=== PATIENT | male | born 1940 | race Caucasian/White ===

== ENCOUNTER 2018-12-22 13:43 | Outpatient (CLI) | payer MEDICARE, OTHER ==
--- NOTE | 2018-12-22 15:30 | MRI ---
MRI Upper Ext Jt Rt WO Con History: S 66.811a rupture of flexor tendon of right hand Comparison: Hand radiographs of August 29, 2018 Findings: Bones: No acute fracture. 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 Incompletely evaluated area of susceptibility within the middle finger distal phalanx and index finger distal phalanx. Moderate degenerative changes of the thumb carpometacarpal joint. Degenerative changes between the pr oximal and distal carpal row. Tendons: Extensor tendons are intact. There is a complete rupture of the flexor digitorum profundus s mall finger at the level of the transverse carpal ligament. There is approximately a 2 cm gap between the torn tendon fibers. The proximal stump is felt to be at the level of the index finger pro ximal metacarpal metaphysis. Muscles: Muscle signal and bulk is normal. Soft tissues: Pulleys are intact. Low-grade tenosynovial fluid flexor tendons small finger. Impression: Full-thickness rupture flexor digitorum profundus small finger at the level of the transv erse carpal ligament with a 2 cm gap.
== END 2018-12-22 13:44 | disposition home or self-care (01) ==
LOC: BICMRI 13:43
PROVIDERS: ATTEND Orthopaedic Surgery Hand Surgery
DX: S66.811A Strain of other specified muscles, fascia and tendons at wrist and hand level, right hand, initial encounter (principal)

== ENCOUNTER 2019-02-23 10:27 | Outpatient (CLI) | payer MEDICARE, OTHER ==
[2019-02-23 12:15] LABS: Bacteria/HPF None Seen HPF (None Seen); Bilirubin Negative (Negative); Blood, Urine Negative (Negative); Clarity Clear (Clear); Glucose, Urine (Dipstick) Normal (Negative); Leukocyte Negative Leu/uL (Negative); Nitrite Negative (Negative); Protein, Urine (Dipstick) Negative (Neg-Trace); RBC/HPF 0-3 HPF (0-3); Squamous Epithelial None Seen HPF (0-3); Urobilinogen Normal mg/dL (Less than 2); WBC/HPF None Seen HPF (0-3)
[2019-02-23 12:17] LABS: #Eosinphils 0.1 thou/uL (0.0-0.7); #Lymphocytes 1.3 thou/uL (1.20-3.40); #Monocytes 0.5 thou/uL (0.11-0.59); #Neutrophils 5.1 thou/uL (1.40-6.50); %Basophils 0.1 % (0.0-1.0); %Eosinophils 1.4 % (0.0-10.0); %Lymphocytes 18.2 % (21.0-51.0); %Monocytes 7.4 % (0.0-10.0); Hemoglobin 14.5 g/dL (14.0-18.0); Mean Corpuscular HGB CONC 32.8 g/dL (32.0-36.0); Mean Corpuscular Hemoglobin 29.2 pg (27.0-31.0); Mean Corpuscular Volume 89.2 fL (78.0-98.0); Mean Platelet Volume 7.9 fL (7.4-10.4); Platelet Count 227 thou/uL (130-400); RBC Distribution Width 12.6 % (11.5-14.5); Red Blood Cell (RBC) Count 4.96 mill/uL (4.70-6.10)
[2019-02-23 12:38] LABS: Anion Gap 14 mmol/L (10-20); BUN (Urea Nitrogen) 15 mg/dL (8.4-25.7); Calc. Creatinine Clearance 0 mL/min (70-130); Calcium 9.6 mg/dL (7.8-10.44); Carbon Dioxide 24 mmol/L (23-31); Chloride 108 mmol/L (98-107); Estimated GFR-MDRD 64; Glucose 97 mg/dL (83-110); Potassium 4.8 mmol/L (3.5-5.1); Sodium 141 mmol/L (136-145)
--- NOTE | 2019-02-23 16:56 | EKG ---
Test Reason : Blood Pressure : / mmHG Vent. Rate : 067 BPM Atrial Rate : 067 BPM P-R Int : 174 ms QRS Dur : 092 ms QT Int : 394 ms P-R-T Axes : 041 026 043 degrees QTc Int : 416 ms Normal sinus rhythm minimal st abnormality Abnormal ECG When compared with ECG of 23-FEB-2019 11:24, (Unconfirmed) No significant change was found Confirmed by DR. Alma HERNANDEZ ([id number]) on 02/23/2019 4:56:29 PM Referred By: ROSA Confirmed By:DR. Alma HERNANDEZ
== END 2019-02-23 10:28 | disposition home or self-care (01) ==
LOC: LABBT 10:27
PROVIDERS: ATTEND Orthopaedic Surgery Hand Surgery
DX: Z01.818 Encounter for other preprocedural examination (principal); M18.12 Unilateral primary osteoarthritis of first carpometacarpal joint, left hand
CPT/HCPCS: 36415; 80048; 81001; 85025; 86140; 93005; 93010

== ENCOUNTER 2019-03-07 05:44 | Day surgery (SDC) | payer MEDICARE, OTHER ==
[2019-02-23 10:49] VITALS: BMI 24.4
[2019-03-07] MEDS ORDERED: Bupivacaine PF 0.5% 30 ML VIAL ONE (06:34)
[2019-03-07] MEDS ORDERED: Betamet Acet/Betamet Na Ph 30 MG/5 ML VIAL ONE (06:34)
[2019-03-07] MEDS ORDERED: Bacitracin Zinc Ointment 30 gm TUBE ONE (06:34)
[2019-03-07] MEDS ORDERED: Fentanyl 100 MCG/2 ML VIAL ONE (07:06)
[2019-03-07] MEDS ORDERED: Phenylephrine HCL 10 MG/ML VIAL ONE (07:06)
[2019-03-07] MEDS ORDERED: PROPOFOL 200 MG/20 ML VIAL ONE (09:54)
[2019-03-07] MEDS ORDERED: PHENYLEPHRINE-NS 100 MCG/ML 10 ML SYRINGE ONE (09:54)
[2019-03-07] MEDS ORDERED: ePHEDrine/0.9% NaCl/PF SYRINGE 50 mg/10 ml ONE (09:54)
[2019-03-07] MEDS ORDERED: Ondansetron PF 4 MG/2 ML Vial ONE (09:54)
[2019-03-07] MEDS ORDERED: Dexamethasone 20 MG/5 ML VIAL ONE (09:54)
[2019-03-07] MEDS ORDERED: Lidocaine 1% PF 5 ML VIAL ONE (09:54)
[2019-03-07] MEDS ORDERED: Ketorolac Tromethamine 30 MG/ML VIAL ONE (10:12)
--- NOTE | 2019-03-07 14:33 | RAD ---
EXAM: 3 views of the left index finger HISTORY: Status post ORIF of index finger COMPARISON: 08/29/2018 FINDINGS: There is loss of bone surrounding the PIP joint of the index finger. This could be secondar y to bony removal and ongoing fusion versus arthroplasty. Surrounding soft tissue swelling is seen. IMPRESSION: Postsurgical changes of the PIP joint of the index finger.
--- NOTE | 2019-03-08 08:30 | OP ---
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 POSTOPERATIVE DIAGNOSES: 1. 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 2. Osteophytes in all planes on both sides of the joint, that was tremendously large. PROCEDURES PERFORMED: 1. C-arm supervision. 2. Left index finger proximal phalangeal arthroplasty using #2 Kathie Surrey implant for the proximal phalangeal joint. COMPLICATIONS: None. SPECIMEN SENT: None. C-ARM SUPERVISION: Yes. TOURNIQUET TIME: 71 minutes. ESTIMATED BLOOD LOSS: 25 mL. DESCRIPTION OF PROCEDURE: After successful general endotracheal anesthesia, the limb was prepped and draped. The patient had time-out done and appropriately identified the index finger. We then made a zigzag incision, carried through skin and subcutaneous tissue, released extensor mechanism longitudinally, exposure was not completely adequate, so we then made a Z incision with the longitudinal limb being almost 2 cm long. Here now, we could obtain excellent exposure, completely flexed the PIP joint to 110 degrees. We began by performing our proximal cut with a 5-mm sagittal saw in the frontal sagittal plane, removing all condylar tissue. We then used a danielle to bur out the space and flatten out the eburnated bone, which was nearly 100% in the joint distally. We freed up the dorsal and radial osteophytes as much as possible without completely stripping the collateral ligament on the volar plate. Once this was done, we then brought the starter awl into the field. We went proximal 1st and radiographs and the C-arm confirmed excellent position in frontal sagittal plane and it was placed deep enough. Then, we did the same thing in the distal and C-arm confirmed in the frontal sagittal plane line being central and removed it. We then began progressive sizing with a serrated broach and we were able to get to a 2. This was done through much trepidation and multiple indurations at the same depth. Once this was done, we placed 2 prosthesis inside the wound, and it showed no instability and we felt that this was excellent fit. We then found the collateral ligaments, placed a [id number] suture in them with a heavy Prolene for later passes through the condyles. We then drilled K-wire to the condyle, radial side, and then placed the ligament back in line with the new joint space and then closed it here while the previously mentioned collateral ligament repair was accomplished with the joint at 40 degrees of flexion and maximally radially deviated. We then brought the final prosthesis on the field after irrigating and clean the wound one last time to make sure there were no abnormalities, we then placed the final prosthesis in place, tied the collateral ligament incision withProlene through a condyle and tied over the condyle, checking radiographic alignment to make sure it was. The patient then had no evidence of anesthetic or operative complication. The tourniquet was released. Hemostasis obtained. We closed the extensor mechanism 1st with a running 4-0 Prolene and then using heavy generous 4-0 Prolene and reapproximated. Now, this was done just before we placed the final prosthesis, which was all size 2 and had excellent fit. The patient had no evidence of anesthetic or operative complication after closure of the wound in the usual fashion and repair with the running Prolene of the extensor mechanism. Job ID: [id number]
== END 2019-03-07 11:45 | disposition home or self-care (01) ==
LOC: SDC 05:44
PROVIDERS: ATTEND Orthopaedic Surgery Hand Surgery
PROC: 0RRX0JZ Replacement of Left Finger Phalangeal Joint with Synthetic Substitute, Open Approach (ICD-10-PCS; principal; 2019-03-07)
DX: M19.042 Primary osteoarthritis, left hand (principal); I10 Essential (primary) hypertension; Z79.82 Long term (current) use of aspirin; Z79.899 Other long term (current) drug therapy; Z88.0 Allergy status to penicillin; Z88.1 Allergy status to other antibiotic agents; Z88.2 Allergy status to sulfonamides
CPT/HCPCS: 26536; 73140; 76000; C1776; J0690; J0702; J1100; J1885; J2001; J2370; J2405; J2704; J3010; J3370; J3490; S0020

== ENCOUNTER 2020-01-26 07:45 | Outpatient (CLI) | payer MEDICARE, OTHER ==
--- NOTE | 2020-01-26 09:25 | ULT ---
ABDOMINAL ULTRASOUND: INDICATION: Elevated liver enzymes. Images of the gallbladder show areas of gallbladder wall thickening. No evidence of gallstone identi fied. Common bile duct is normal caliber. Visualized aorta and IVC unremarkable. Pancreas is mostly obscured. The liver shows increased echogenicity suggesting fatty infiltration. No focal liver mass. The spleen appears normal. Both kidneys are imaged and appear unremarkable. IMPRESSION: Focal areas of gallbladder wall thickening in the region of neck of the gallbladder. No evidence of gallstone. Negative Bolivar's sign is described. Significance is uncertain. Consider HIDA scan to a ssess gallbladder function. POS: AGW
== END 2020-01-26 07:46 | disposition home or self-care (01) ==
LOC: BICULT 07:45
PROVIDERS: ATTEND Family Medicine
DX: R74.8 Abnormal levels of other serum enzymes (principal); K82.8 Other specified diseases of gallbladder
CPT/HCPCS: 93975

== ENCOUNTER 2021-06-13 12:06 | Outpatient (CLI) | payer MEDICARE, OTHER | END 2021-06-13 12:07 | disposition home or self-care (01) | LOC: SCSRAD 12:06 | PROVIDERS: ATTEND Family Medicine | DX: M25.551 Pain in right hip (principal); Z98.1 Arthrodesis status | CPT/HCPCS: 72170 ==

== ENCOUNTER 2022-12-28 09:34 | Emergency (ER) | payer MEDICARE, OTHER ==
[2022-12-28 10:10] LABS: #Basophils 0.1 thou/uL (0.0-0.2); #Monocytes 1.6 thou/uL (0.11-0.59); #Neutrophils 15.1 thou/uL (1.40-6.50); %Basophils 0.5 % (0.0-1.0); %Eosinophils 0.2 % (0.0-10.0); %Lymphocytes 5.3 % (21.0-51.0); %Monocytes 9.1 % (0.0-10.0); %Neutrophils 84.6 % (42.0-75.0); Hematocrit 39.8 % (42.0-52.0); Hemoglobin 13.2 g/dL (14.0-18.0); Mean Corpuscular HGB CONC 33.2 g/dL (32.0-36.0); Mean Corpuscular Hemoglobin 28.7 pg (27.0-31.0); Mean Corpuscular Volume 86.5 fl (78.0-98.0); Mean Platelet Volume 10.5 fL (7.4-10.4); Platelet Count 211 10x3/uL (130-400); RBC Distribution Width 15.4 % (11.5-14.5); White Blood Cell (WBC) Count 17.8 10x3/uL (4.8-10.8)
[2022-12-28 10:45] LABS: ALT (SGPT) 32 U/L (8-55); AST (SGOT) 74 U/L (5-34); Albumin 4.8 g/dL (3.4-4.8); Alkaline Phosphatase 73 U/L (40-110); Anion Gap 13 mmol/L (10-20); BUN (Urea Nitrogen) 17 mg/dL (8.4-25.7); Bilirubin, Total 0.7 mg/dL (0.2-1.2); Calc. Creatinine Clearance 0 mL/min (70-130); Calcium 9.6 mg/dL (7.8-10.44); Carbon Dioxide 20 mmol/L (23-31); Chloride 106 mmol/L (98-107); Estimated GFR 52; Globulin 2.4 g/dL (2.4-3.5); Glucose 89 mg/dL (83-110); Lipase 14 U/L (8-78); Potassium 4.4 mmol/L (3.5-5.1); Protein, Total 7.2 g/dL (5.8-8.1); Sodium 135 mmol/L (136-145)
[2022-12-28 11:52] LABS: Troponin I Less than 0.010 ng/mL (< 0.028)
[2022-12-28] MEDS ORDERED: Hydrocodone-Acetamin 15 ML UDCUP ONE ×2 (12:05→12:11)
== END 2022-12-28 13:40 | disposition home or self-care (01) ==
LOC: ERS 09:34
DX: R05.8 Other specified cough (principal)
CPT/HCPCS: 36415; 71045; 80053; 83690; 83880; 84484; 85025; 93005

== ENCOUNTER 2022-12-30 10:25 | Inpatient (IN) | payer MEDICARE, OTHER ==
[2022-12-30 10:49] LABS: #Basophils 0.1 thou/uL (0.0-0.2); #Eosinphils 0.2 thou/uL (0.0-0.7); #Monocytes 0.7 thou/uL (0.11-0.59); %Basophils 0.5 % (0.0-1.0); %Eosinophils 1.2 % (0.0-10.0); %Lymphocytes 5.6 % (21.0-51.0); %Monocytes 5.4 % (0.0-10.0); %Neutrophils 86.9 % (42.0-75.0); Hematocrit 38.7 % (42.0-52.0); Hemoglobin 12.6 g/dL (14.0-18.0); Mean Corpuscular HGB CONC 32.6 g/dL (32.0-36.0); Mean Corpuscular Hemoglobin 28.8 pg (27.0-31.0); Mean Corpuscular Volume 88.6 fl (78.0-98.0); Mean Platelet Volume 10.4 fL (7.4-10.4); Platelet Count 190 10x3/uL (130-400); Red Blood Cell (RBC) Count 4.37 mill/uL (4.70-6.10); White Blood Cell (WBC) Count 13.8 10x3/uL (4.8-10.8)
[2022-12-30] MEDS ORDERED: Iopamidol-370 76% 500 ML MDV (1 ML CHARGE) ONE (11:11)
[2022-12-30 11:15] LABS: ALT (SGPT) 55 U/L (8-55); AST (SGOT) 166 U/L (5-34); Albumin 3.7 g/dL (3.4-4.8); Alkaline Phosphatase 75 U/L (40-110); Anion Gap 14 mmol/L (10-20); BUN (Urea Nitrogen) 22 mg/dL (8.4-25.7); Bilirubin, Total 1.3 mg/dL (0.2-1.2); Calc. Creatinine Clearance 0 mL/min (70-130); Calcium 8.6 mg/dL (7.8-10.44); Carbon Dioxide 23 mmol/L (23-31); Chloride 103 mmol/L (98-107); Estimated GFR 56; Globulin 2.7 g/dL (2.4-3.5); Glucose 129 mg/dL (83-110); Potassium 3.7 mmol/L (3.5-5.1); Protein, Total 6.4 g/dL (5.8-8.1); Sodium 136 mmol/L (136-145)
[2022-12-30] MEDS ORDERED: LevoFLOXacin 750 mg/D5W 150 ml Premix Bag ONE ×2 (12:47→14:01)
[2022-12-30] MEDS ORDERED: Ipratropium/Albuterol 3 ML NEB ONE (12:47)
[2022-12-30] MEDS ORDERED: Vancomycin 1 GM/200 ML (FROZEN) BAG ONE (12:48)
[2022-12-30 13:05] LABS: Magnesium 2.3 mg/dL (1.6-2.6)
[2022-12-30] MEDS ORDERED: Aspirin Chewable 81 MG TAB ONE (14:01)
[2022-12-30] MEDS ORDERED: Furosemide 40 MG/4 ML VIAL SLOW IVP SCH (15:15)
[2022-12-30 15:47] LABS: SARS-CoV-2 NAA Rapid Test Not Detected (NotDetected)
[2022-12-30 19:24] LABS: Troponin I 0.012 ng/mL (< 0.028)
[2022-12-30] MEDS ORDERED: Vancomycin 1 GM in Premix 1 BAG IVPB SCH (21:00)
[2022-12-30] MEDS ORDERED: HYDROcodone/Acetaminophen 7.5/325 mg Tablet PO PRN ×2 (21:07→22:51)
[2022-12-30] MEDS ORDERED: Acetaminophen 325 MG TAB PO PRN (21:07)
[2022-12-30] MEDS ORDERED: HYDROcodone/Acetaminophen 5/325 mg Tablet PO PRN (21:07)
[2022-12-30] MEDS ORDERED: Electrolyte Replacement Protocol 1 EACH FS PRN (21:16)
[2022-12-30] MEDS ORDERED: Melatonin 3 MG TAB PO SCH (21:30)
[2022-12-30] MEDS ORDERED: Furosemide 40 MG/4 ML VIAL ONE (21:36)
[2022-12-31] MEDS: Vancomycin (BATCH) 1.5 GM in Premix 1 BAG IVPB SCH (05:39)
[2022-12-31] MEDS: Furosemide 40 MG/4 ML VIAL SLOW IVP SCH ×2 (05:39→13:57)
[2022-12-31 06:56] LABS: #Basophils 0.1 thou/uL (0.0-0.2); #Eosinphils 0.1 thou/uL (0.0-0.7); #Monocytes 0.6 thou/uL (0.11-0.59); #Neutrophils 11.9 thou/uL (1.40-6.50); %Basophils 0.4 % (0.0-1.0); %Eosinophils 0.7 % (0.0-10.0); %Lymphocytes 4.3 % (21.0-51.0); %Monocytes 4.7 % (0.0-10.0); %Neutrophils 89.2 % (42.0-75.0); Hematocrit 40.3 % (42.0-52.0); Hemoglobin 13.1 g/dL (14.0-18.0); Mean Corpuscular HGB CONC 32.5 g/dL (32.0-36.0); Mean Corpuscular Hemoglobin 28.7 pg (27.0-31.0); Mean Corpuscular Volume 88.4 fl (78.0-98.0); Mean Platelet Volume 11.1 fL (7.4-10.4); Platelet Count 206 10x3/uL (130-400); RBC Distribution Width 15.9 % (11.5-14.5); Red Blood Cell (RBC) Count 4.56 mill/uL (4.70-6.10); White Blood Cell (WBC) Count 13.4 10x3/uL (4.8-10.8)
[2022-12-31 07:25] LABS: ALT (SGPT) 53 U/L (8-55); AST (SGOT) 123 U/L (5-34); Albumin 4.1 g/dL (3.4-4.8); Alkaline Phosphatase 110 U/L (40-110); Anion Gap 15 mmol/L (10-20); BUN (Urea Nitrogen) 16 mg/dL (8.4-25.7); Bilirubin, Total 2.1 mg/dL (0.2-1.2); Calc. Creatinine Clearance 54 mL/min (70-130); Calcium 9.4 mg/dL (7.8-10.44); Carbon Dioxide 24 mmol/L (23-31); Chloride 100 mmol/L (98-107); Estimated GFR 62; Globulin 2.8 g/dL (2.4-3.5); Glucose 104 mg/dL (83-110); Potassium 3.9 mmol/L (3.5-5.1); Protein, Total 6.9 g/dL (5.8-8.1); Sodium 135 mmol/L (136-145)
[2022-12-31] MEDS: busPIRone HCl 5 MG TAB PO PRN (13:57)
[2022-12-31] MEDS: LevoFLOXacin 750 mg/D5W 750 MG in Premix 1 BAG IVPB SCH (13:57)
[2022-12-31] MEDS ORDERED: Benzonatate 100 MG CAP PO PRN (16:35)
[2022-12-31] MEDS: guaiFENesin ER 600 MG TAB PO SCH ×2 (18:27→22:03)
[2022-12-31] MEDS ORDERED: Melatonin 3 MG TAB PO SCH (22:15)
[2023-01-01 06:33] LABS: Vancomycin, Trough 5.9 ug/mL
[2023-01-01] MEDS: Furosemide 40 MG/4 ML VIAL SLOW IVP SCH ×2 (06:40→12:50)
[2023-01-01] MEDS: Vancomycin (BATCH) 1.25 GM in Premix 1 BAG IVPB SCH ×2 (08:45→20:07)
[2023-01-01] MEDS: FLUoxetine HCl 20 MG CAP PO SCH (08:45)
[2023-01-01] MEDS: guaiFENesin ER 600 MG TAB PO SCH ×2 (08:46→20:08)
[2023-01-01] MEDS: busPIRone HCl 5 MG TAB PO PRN (10:36)
[2023-01-01 10:48] LABS: #Basophils 0.1 thou/uL (0.0-0.2); #Eosinphils 0.2 thou/uL (0.0-0.7); #Neutrophils 13.6 thou/uL (1.40-6.50); %Basophils 0.3 % (0.0-1.0); %Eosinophils 1.4 % (0.0-10.0); %Lymphocytes 4.5 % (21.0-51.0); %Monocytes 6.3 % (0.0-10.0); %Neutrophils 87.2 % (42.0-75.0); Hematocrit 42.5 % (42.0-52.0); Hemoglobin 14.2 g/dL (14.0-18.0); Mean Corpuscular HGB CONC 33.4 g/dL (32.0-36.0); Mean Corpuscular Hemoglobin 28.8 pg (27.0-31.0); Mean Corpuscular Volume 86.2 fl (78.0-98.0); Mean Platelet Volume 10.3 fL (7.4-10.4); Platelet Count 197 10x3/uL (130-400); RBC Distribution Width 15.7 % (11.5-14.5); Red Blood Cell (RBC) Count 4.93 mill/uL (4.70-6.10); White Blood Cell (WBC) Count 15.6 10x3/uL (4.8-10.8)
[2023-01-01 11:35] LABS: ALT (SGPT) 46 U/L (8-55); AST (SGOT) 75 U/L (5-34); Albumin 3.9 g/dL (3.4-4.8); Alkaline Phosphatase 125 U/L (40-110); Anion Gap 20 mmol/L (10-20); BUN (Urea Nitrogen) 21 mg/dL (8.4-25.7); Bilirubin, Total 2.6 mg/dL (0.2-1.2); Calc. Creatinine Clearance 66 mL/min (70-130); Calcium 9.3 mg/dL (7.8-10.44); Carbon Dioxide 20 mmol/L (23-31); Estimated GFR 79; Globulin 3.2 g/dL (2.4-3.5); Glucose 89 mg/dL (83-110); Protein, Total 7.1 g/dL (5.8-8.1)
[2023-01-01 11:52] LABS: Chloride 99 mmol/L (98-107); Potassium 3.1 mmol/L (3.5-5.1); Sodium 135 mmol/L (136-145)
[2023-01-01] MEDS ORDERED: Dexamethasone 10 MG/ML VIAL SLOW IVP SCH (12:30)
[2023-01-01] MEDS ORDERED: Potassium Chloride 20 MEQ TAB PO SCH (14:00)
[2023-01-01] MEDS: LevoFLOXacin 750 mg/D5W 750 MG in Premix 1 BAG IVPB SCH (14:42)
[2023-01-01] MEDS ORDERED: predniSONE 20 MG TAB PO SCH (17:45)
[2023-01-01] MEDS: Vancomycin (BATCH) 1.5 GM in Premix 1 BAG IVPB SCH (19:30)
[2023-01-01] MEDS: LUNESTA 2 MG PO SCH (20:24)
[2023-01-01 20:50] LABS: Magnesium 2.1 mg/dL (1.6-2.6)
[2023-01-02] MEDS: Furosemide 40 MG/4 ML VIAL SLOW IVP SCH ×2 (05:38→14:41)
[2023-01-02 07:01] LABS: #Monocytes 0.9 thou/uL (0.11-0.59); #Neutrophils 14.1 thou/uL (1.40-6.50); %Basophils 0.3 % (0.0-1.0); %Lymphocytes 3.3 % (21.0-51.0); %Monocytes 5.6 % (0.0-10.0); %Neutrophils 90.2 % (42.0-75.0); Hematocrit 41.2 % (42.0-52.0); Hemoglobin 13.8 g/dL (14.0-18.0); Mean Corpuscular HGB CONC 33.5 g/dL (32.0-36.0); Mean Corpuscular Hemoglobin 28.3 pg (27.0-31.0); Mean Corpuscular Volume 84.6 fl (78.0-98.0); Mean Platelet Volume 10.4 fL (7.4-10.4); Platelet Count 200 10x3/uL (130-400); RBC Distribution Width 15.9 % (11.5-14.5); Red Blood Cell (RBC) Count 4.87 mill/uL (4.70-6.10); White Blood Cell (WBC) Count 15.7 10x3/uL (4.8-10.8)
[2023-01-02 07:35] LABS: Anion Gap 16 mmol/L (10-20); BUN (Urea Nitrogen) 33 mg/dL (8.4-25.7); Calc. Creatinine Clearance 62 mL/min (70-130); Calcium 9.5 mg/dL (7.8-10.44); Carbon Dioxide 23 mmol/L (23-31); Chloride 101 mmol/L (98-107); Estimated GFR 78; Glucose 127 mg/dL (83-110); Potassium 3.2 mmol/L (3.5-5.1); Sodium 137 mmol/L (136-145)
[2023-01-02] MEDS ORDERED: predniSONE 20 MG TAB PO SCH (08:00)
[2023-01-02] MEDS: busPIRone HCl 5 MG TAB PO PRN (08:54)
[2023-01-02] MEDS: FLUoxetine HCl 20 MG CAP PO SCH (08:54)
[2023-01-02] MEDS: guaiFENesin ER 600 MG TAB PO SCH ×2 (08:54→20:23)
[2023-01-02] MEDS ORDERED: Potassium Chloride 20 MEQ TAB PO SCH (09:00)
[2023-01-02] MEDS: Dexamethasone 10 MG/ML VIAL SLOW IVP SCH (09:02)
[2023-01-02] MEDS: Vancomycin (BATCH) 1.25 GM in Premix 1 BAG IVPB SCH (09:02)
[2023-01-02] MEDS: ALPRAZolam 0.25 MG TAB PO PRN (09:13)
[2023-01-02] MEDS: LevoFLOXacin 750 mg/D5W 750 MG in Premix 1 BAG IVPB SCH (14:40)
[2023-01-02] MEDS: LUNESTA 2 MG PO SCH (20:33)
[2023-01-03] MEDS: Furosemide 40 MG/4 ML VIAL SLOW IVP SCH (05:13)
[2023-01-03 07:03] LABS: #Monocytes 1.6 thou/uL (0.11-0.59); %Basophils 0.1 % (0.0-1.0); %Eosinophils 0.1 % (0.0-10.0); %Lymphocytes 3.5 % (21.0-51.0); %Neutrophils 88.7 % (42.0-75.0); Hematocrit 44.1 % (42.0-52.0); Hemoglobin 14.6 g/dL (14.0-18.0); Mean Corpuscular HGB CONC 33.1 g/dL (32.0-36.0); Mean Corpuscular Hemoglobin 28.5 pg (27.0-31.0); Mean Corpuscular Volume 86.1 fl (78.0-98.0); Mean Platelet Volume 10.4 fL (7.4-10.4); Platelet Count 243 10x3/uL (130-400); Red Blood Cell (RBC) Count 5.12 mill/uL (4.70-6.10); White Blood Cell (WBC) Count 22.6 10x3/uL (4.8-10.8)
[2023-01-03 07:37] LABS: Anion Gap 18 mmol/L (10-20); BUN (Urea Nitrogen) 52 mg/dL (8.4-25.7); Calc. Creatinine Clearance 51 mL/min (70-130); Calcium 9.4 mg/dL (7.8-10.44); Carbon Dioxide 22 mmol/L (23-31); Chloride 102 mmol/L (98-107); Estimated GFR 62; Glucose 125 mg/dL (83-110); Potassium 3.7 mmol/L (3.5-5.1); Sodium 138 mmol/L (136-145)
[2023-01-03] MEDS: ALPRAZolam 0.25 MG TAB PO PRN (08:09)
[2023-01-03] MEDS: Dexamethasone 10 MG/ML VIAL SLOW IVP SCH (08:09)
[2023-01-03] MEDS: guaiFENesin ER 600 MG TAB PO SCH ×2 (08:09→20:26)
[2023-01-03] MEDS: busPIRone HCl 5 MG TAB PO PRN (08:09)
[2023-01-03] MEDS: FLUoxetine HCl 20 MG CAP PO SCH (08:09)
[2023-01-03 11:19] LABS: ALT (SGPT) 64 U/L (8-55); AST (SGOT) 59 U/L (5-34); Albumin 3.8 g/dL (3.4-4.8); Alkaline Phosphatase 121 U/L (40-110); Bilirubin, Direct 0.6 mg/dL (0.1-0.3); Bilirubin, Total 1.4 mg/dL (0.2-1.2); Protein, Total 6.8 g/dL (5.8-8.1)
[2023-01-03] MEDS: LevoFLOXacin 750 mg/D5W 750 MG in Premix 1 BAG IVPB SCH (15:43)
[2023-01-03] MEDS: LUNESTA 2 MG PO SCH (20:26)
[2023-01-04 05:41] LABS: #Eosinphils 0.1 thou/uL (0.0-0.7); #Monocytes 1.5 thou/uL (0.11-0.59); #Neutrophils 15.7 thou/uL (1.40-6.50); %Basophils 0.2 % (0.0-1.0); %Eosinophils 0.3 % (0.0-10.0); %Lymphocytes 6.7 % (21.0-51.0); %Monocytes 7.8 % (0.0-10.0); %Neutrophils 84.5 % (42.0-75.0); Hematocrit 43.1 % (42.0-52.0); Hemoglobin 14.1 g/dL (14.0-18.0); Mean Corpuscular HGB CONC 32.7 g/dL (32.0-36.0); Mean Corpuscular Hemoglobin 28.1 pg (27.0-31.0); Mean Corpuscular Volume 85.9 fl (78.0-98.0); Mean Platelet Volume 10.3 fL (7.4-10.4); Platelet Count 201 10x3/uL (130-400); RBC Distribution Width 16.1 % (11.5-14.5); Red Blood Cell (RBC) Count 5.02 mill/uL (4.70-6.10); White Blood Cell (WBC) Count 18.6 10x3/uL (4.8-10.8)
[2023-01-04 06:17] LABS: Anion Gap 19 mmol/L (10-20); BUN (Urea Nitrogen) 50 mg/dL (8.4-25.7); Calc. Creatinine Clearance 60 mL/min (70-130); Calcium 8.6 mg/dL (7.8-10.44); Carbon Dioxide 22 mmol/L (23-31); Chloride 103 mmol/L (98-107); Estimated GFR 75; Glucose 103 mg/dL (83-110); Potassium 3.6 mmol/L (3.5-5.1); Sodium 140 mmol/L (136-145)
[2023-01-04] MEDS: guaiFENesin ER 600 MG TAB PO SCH ×2 (08:47→20:46)
[2023-01-04] MEDS: Furosemide 40 MG TAB PO SCH (08:47)
[2023-01-04] MEDS: FLUoxetine HCl 20 MG CAP PO SCH (08:47)
[2023-01-04] MEDS: Dexamethasone 10 MG/ML VIAL SLOW IVP SCH (08:48)
[2023-01-04] MEDS: ALPRAZolam 0.25 MG TAB PO PRN ×2 (10:52→15:42)
[2023-01-04] MEDS: busPIRone HCl 5 MG TAB PO PRN (13:25)
[2023-01-04] MEDS: LevoFLOXacin 750 mg/D5W 750 MG in Premix 1 BAG IVPB SCH (13:25)
[2023-01-04] MEDS: LUNESTA 2 MG PO SCH (20:47)
[2023-01-05 05:53] VITALS: BMI 22.8
[2023-01-05 06:39] LABS: #Basophils 0.1 thou/uL (0.0-0.2); #Eosinphils 0.2 thou/uL (0.0-0.7); #Neutrophils 15.9 thou/uL (1.40-6.50); %Basophils 0.3 % (0.0-1.0); %Eosinophils 1.2 % (0.0-10.0); %Lymphocytes 8.3 % (21.0-51.0); %Monocytes 5.2 % (0.0-10.0); Hematocrit 46.7 % (42.0-52.0); Hemoglobin 14.8 g/dL (14.0-18.0); Mean Corpuscular HGB CONC 31.7 g/dL (32.0-36.0); Mean Corpuscular Hemoglobin 27.9 pg (27.0-31.0); Mean Corpuscular Volume 88.1 fl (78.0-98.0); Mean Platelet Volume 10.6 fL (7.4-10.4); Platelet Count 182 10x3/uL (130-400); RBC Distribution Width 16.1 % (11.5-14.5); White Blood Cell (WBC) Count 18.9 10x3/uL (4.8-10.8)
[2023-01-05 07:07] LABS: Anion Gap 16 mmol/L (10-20); BUN (Urea Nitrogen) 39 mg/dL (8.4-25.7); Calc. Creatinine Clearance 65 mL/min (70-130); Calcium 8.4 mg/dL (7.8-10.44); Carbon Dioxide 22 mmol/L (23-31); Chloride 102 mmol/L (98-107); Estimated GFR 83; Glucose 96 mg/dL (83-110); Potassium 3.8 mmol/L (3.5-5.1); Sodium 136 mmol/L (136-145)
[2023-01-05] MEDS: Dexamethasone 10 MG/ML VIAL SLOW IVP SCH (08:44)
[2023-01-05] MEDS: busPIRone HCl 5 MG TAB PO PRN (08:44)
[2023-01-05] MEDS: guaiFENesin ER 600 MG TAB PO SCH ×2 (08:44→20:46)
[2023-01-05] MEDS: ALPRAZolam 0.25 MG TAB PO PRN ×3 (08:44→20:46)
[2023-01-05] MEDS: Furosemide 40 MG TAB PO SCH (08:44)
[2023-01-05] MEDS: FLUoxetine HCl 20 MG CAP PO SCH (08:44)
[2023-01-05] MEDS: LevoFLOXacin 750 mg/D5W 750 MG in Premix 1 BAG IVPB SCH (14:26)
[2023-01-05] MEDS: LUNESTA 2 MG PO SCH (20:46)
[2023-01-06] MEDS: methylPREDNISolone Sod Succ 40 MG VIAL IVP SCH ×5 (00:09→23:44)
[2023-01-06] MEDS ORDERED: methylPREDNISolone Sod Succ 40 MG VIAL IVP SCH ×2 (06:00)
[2023-01-06 06:05] LABS: #Monocytes 0.5 thou/uL (0.11-0.59); #Neutrophils 13.5 thou/uL (1.40-6.50); %Basophils 0.2 % (0.0-1.0); %Eosinophils 0.1 % (0.0-10.0); %Lymphocytes 4.5 % (21.0-51.0); %Monocytes 3.3 % (0.0-10.0); %Neutrophils 90.8 % (42.0-75.0); Hematocrit 42.6 % (42.0-52.0); Hemoglobin 13.9 g/dL (14.0-18.0); Mean Corpuscular HGB CONC 32.6 g/dL (32.0-36.0); Mean Corpuscular Hemoglobin 27.9 pg (27.0-31.0); Mean Corpuscular Volume 85.5 fl (78.0-98.0); Mean Platelet Volume 10.6 fL (7.4-10.4); Platelet Count 150 10x3/uL (130-400); RBC Distribution Width 15.8 % (11.5-14.5); Red Blood Cell (RBC) Count 4.98 mill/uL (4.70-6.10); White Blood Cell (WBC) Count 14.8 10x3/uL (4.8-10.8)
[2023-01-06 06:29] LABS: Anion Gap 16 mmol/L (10-20); BUN (Urea Nitrogen) 31 mg/dL (8.4-25.7); Calc. Creatinine Clearance 73 mL/min (70-130); Calcium 8.5 mg/dL (7.8-10.44); Carbon Dioxide 23 mmol/L (23-31); Chloride 102 mmol/L (98-107); Estimated GFR 88; Glucose 113 mg/dL (83-110); Potassium 4.3 mmol/L (3.5-5.1); Sodium 137 mmol/L (136-145)
[2023-01-06] MEDS: ALPRAZolam 0.25 MG TAB PO PRN ×2 (08:16→20:11)
[2023-01-06] MEDS: FLUoxetine HCl 20 MG CAP PO SCH (08:16)
[2023-01-06] MEDS: Furosemide 40 MG TAB PO SCH (08:16)
[2023-01-06] MEDS: busPIRone HCl 5 MG TAB PO PRN (08:17)
[2023-01-06] MEDS: guaiFENesin ER 600 MG TAB PO SCH ×2 (08:17→20:11)
[2023-01-06] MEDS: LevoFLOXacin 750 mg/D5W 750 MG in Premix 1 BAG IVPB SCH (13:51)
[2023-01-06] MEDS: Levothyroxine Sodium 100 MCG TAB PO SCH (20:11)
[2023-01-06] MEDS: LUNESTA 2 MG PO SCH (20:11)
[2023-01-06] MEDS: Montelukast Sodium 10 mg Tablet PO SCH (20:11)
[2023-01-06] MEDS: Saccharomyces boulardii 250 MG CAP PO SCH (20:11)
[2023-01-07 04:11] LABS: #Basophils 0.1 thou/uL (0.0-0.2); #Monocytes 0.9 thou/uL (0.11-0.59); #Neutrophils 20.2 thou/uL (1.40-6.50); %Basophils 0.3 % (0.0-1.0); %Lymphocytes 3.6 % (21.0-51.0); %Monocytes 4.2 % (0.0-10.0); Hemoglobin 13.6 g/dL (14.0-18.0); Mean Corpuscular HGB CONC 32.4 g/dL (32.0-36.0); Mean Corpuscular Hemoglobin 28.5 pg (27.0-31.0); Mean Platelet Volume 10.6 fL (7.4-10.4); Platelet Count 149 10x3/uL (130-400); RBC Distribution Width 15.7 % (11.5-14.5); Red Blood Cell (RBC) Count 4.77 mill/uL (4.70-6.10); White Blood Cell (WBC) Count 22.5 10x3/uL (4.8-10.8)
[2023-01-07 04:20] LABS: Mean Corpuscular Volume 88.1 fl (78.0-98.0)
[2023-01-07 04:37] LABS: Anion Gap 16 mmol/L (10-20); Calcium 8.2 mg/dL (7.8-10.44); Carbon Dioxide 19 mmol/L (23-31); Chloride 102 mmol/L (98-107); Potassium 4.6 mmol/L (3.5-5.1); Sodium 132 mmol/L (136-145)
[2023-01-07 04:40] LABS: Glucose 112 mg/dL (83-110)
[2023-01-07 04:44] LABS: BUN (Urea Nitrogen) 33 mg/dL (8.4-25.7); Calc. Creatinine Clearance 73 mL/min (70-130); Estimated GFR 88
[2023-01-07] MEDS: methylPREDNISolone Sod Succ 40 MG VIAL IVP SCH ×2 (06:08→12:00)
[2023-01-07] MEDS: Ferrous Sulfate 325 MG TAB PO SCH (09:11)
[2023-01-07] MEDS: FLUoxetine HCl 20 MG CAP PO SCH (09:11)
[2023-01-07] MEDS: Saccharomyces boulardii 250 MG CAP PO SCH ×2 (09:11→20:30)
[2023-01-07] MEDS: Tamsulosin HCl 0.4 MG CAP PO SCH (09:11)
[2023-01-07] MEDS: guaiFENesin ER 600 MG TAB PO SCH ×2 (09:12→20:30)
[2023-01-07] MEDS: Furosemide 40 MG TAB PO SCH (09:12)
[2023-01-07] MEDS: Multivitamin W/ Minerals 1 TAB PO SCH (09:12)
[2023-01-07] MEDS: Rosuvastatin 20 MG TAB PO SCH (09:12)
[2023-01-07] MEDS: Dutasteride 0.5 MG CAP PO SCH (09:12)
[2023-01-07] MEDS: ALPRAZolam 0.25 MG TAB PO PRN (11:59)
[2023-01-07] MEDS: LevoFLOXacin 750 mg/D5W 750 MG in Premix 1 BAG IVPB SCH (14:40)
[2023-01-07] MEDS: Montelukast Sodium 10 mg Tablet PO SCH (20:30)
[2023-01-07] MEDS: Levothyroxine Sodium 100 MCG TAB PO SCH (20:30)
[2023-01-07] MEDS: LUNESTA 2 MG PO SCH (20:31)
[2023-01-08] MEDS: methylPREDNISolone Sod Succ 40 MG VIAL IVP SCH ×3 (00:09→23:11)
[2023-01-08 05:01] LABS: #Basophils 0.1 thou/uL (0.0-0.2); #Monocytes 1.1 thou/uL (0.11-0.59); #Neutrophils 22.1 thou/uL (1.40-6.50); %Basophils 0.2 % (0.0-1.0); %Eosinophils 0.1 % (0.0-10.0); %Lymphocytes 2.6 % (21.0-51.0); %Monocytes 4.5 % (0.0-10.0); Hematocrit 38.7 % (42.0-52.0); Hemoglobin 12.9 g/dL (14.0-18.0); Mean Corpuscular HGB CONC 33.3 g/dL (32.0-36.0); Mean Corpuscular Hemoglobin 28.4 pg (27.0-31.0); Mean Corpuscular Volume 85.2 fl (78.0-98.0); Platelet Count 145 10x3/uL (130-400); RBC Distribution Width 15.7 % (11.5-14.5); Red Blood Cell (RBC) Count 4.54 mill/uL (4.70-6.10); White Blood Cell (WBC) Count 24.3 10x3/uL (4.8-10.8)
[2023-01-08 05:26] LABS: Anion Gap 12 mmol/L (10-20); BUN (Urea Nitrogen) 29 mg/dL (8.4-25.7); Calc. Creatinine Clearance 70 mL/min (70-130); Calcium 8.2 mg/dL (7.8-10.44); Carbon Dioxide 24 mmol/L (23-31); Chloride 99 mmol/L (98-107); Estimated GFR 87; Glucose 108 mg/dL (83-110); Potassium 4.1 mmol/L (3.5-5.1); Sodium 131 mmol/L (136-145)
[2023-01-08] MEDS: guaiFENesin ER 600 MG TAB PO SCH ×2 (10:40→20:53)
[2023-01-08] MEDS: Dutasteride 0.5 MG CAP PO SCH (10:40)
[2023-01-08] MEDS: FLUoxetine HCl 20 MG CAP PO SCH (10:40)
[2023-01-08] MEDS: Furosemide 40 MG/4 ML VIAL SLOW IVP SCH (10:40)
[2023-01-08] MEDS: Multivitamin W/ Minerals 1 TAB PO SCH (10:40)
[2023-01-08] MEDS: ALPRAZolam 0.25 MG TAB PO PRN (10:41)
[2023-01-08] MEDS: Saccharomyces boulardii 250 MG CAP PO SCH ×2 (10:41→20:53)
[2023-01-08] MEDS: Tamsulosin HCl 0.4 MG CAP PO SCH (10:41)
[2023-01-08] MEDS: Rosuvastatin 20 MG TAB PO SCH (10:41)
[2023-01-08] MEDS: Ferrous Sulfate 325 MG TAB PO SCH (10:45)
[2023-01-08] MEDS: Furosemide 40 MG TAB PO SCH (11:34)
[2023-01-08] MEDS: LevoFLOXacin 750 mg/D5W 750 MG in Premix 1 BAG IVPB SCH (17:02)
[2023-01-08] MEDS: Acetaminophen 325 MG TAB PO PRN (17:02)
[2023-01-08] MEDS: Montelukast Sodium 10 mg Tablet PO SCH (20:53)
[2023-01-08] MEDS: Levothyroxine Sodium 100 MCG TAB PO SCH (20:53)
[2023-01-08] MEDS: LUNESTA 2 MG PO SCH (20:53)
[2023-01-09 03:50] LABS: #Monocytes 0.9 thou/uL (0.11-0.59); #Neutrophils 19.5 thou/uL (1.40-6.50); %Basophils 0.1 % (0.0-1.0); %Eosinophils 0.1 % (0.0-10.0); %Lymphocytes 2.7 % (21.0-51.0); %Neutrophils 91.8 % (42.0-75.0); Hemoglobin 13.3 g/dL (14.0-18.0); Mean Corpuscular HGB CONC 33.3 g/dL (32.0-36.0); Mean Corpuscular Hemoglobin 28.5 pg (27.0-31.0); Mean Corpuscular Volume 85.7 fl (78.0-98.0); Mean Platelet Volume 10.1 fL (7.4-10.4); Platelet Count 159 10x3/uL (130-400); RBC Distribution Width 15.7 % (11.5-14.5); Red Blood Cell (RBC) Count 4.67 mill/uL (4.70-6.10); White Blood Cell (WBC) Count 21.2 10x3/uL (4.8-10.8)
[2023-01-09 04:12] LABS: Anion Gap 12 mmol/L (10-20); BUN (Urea Nitrogen) 27 mg/dL (8.4-25.7); Calc. Creatinine Clearance 73 mL/min (70-130); Calcium 8.1 mg/dL (7.8-10.44); Carbon Dioxide 25 mmol/L (23-31); Chloride 100 mmol/L (98-107); Estimated GFR 88; Glucose 109 mg/dL (83-110); Potassium 4.1 mmol/L (3.5-5.1); Sodium 133 mmol/L (136-145)
[2023-01-09] MEDS: Ferrous Sulfate 325 MG TAB PO SCH (09:41)
[2023-01-09] MEDS: Multivitamin W/ Minerals 1 TAB PO SCH (09:42)
[2023-01-09] MEDS: FLUoxetine HCl 20 MG CAP PO SCH (09:42)
[2023-01-09] MEDS: guaiFENesin ER 600 MG TAB PO SCH ×2 (09:42→20:31)
[2023-01-09] MEDS: Furosemide 40 MG/4 ML VIAL SLOW IVP SCH (09:42)
[2023-01-09] MEDS: Rosuvastatin 20 MG TAB PO SCH (09:42)
[2023-01-09] MEDS: Dutasteride 0.5 MG CAP PO SCH (09:42)
[2023-01-09] MEDS: Tamsulosin HCl 0.4 MG CAP PO SCH (09:43)
[2023-01-09] MEDS: ALPRAZolam 0.25 MG TAB PO PRN ×3 (09:43→20:31)
[2023-01-09] MEDS: Saccharomyces boulardii 250 MG CAP PO SCH ×2 (09:43→20:31)
[2023-01-09] MEDS: LevoFLOXacin 750 mg/D5W 750 MG in Premix 1 BAG IVPB SCH (13:01)
[2023-01-09] MEDS: methylPREDNISolone Sod Succ 40 MG VIAL IVP SCH ×2 (13:01→18:41)
[2023-01-09] MEDS: Acetaminophen 325 MG TAB PO PRN (13:03)
[2023-01-09] MEDS: LUNESTA 2 MG PO SCH (20:31)
[2023-01-09] MEDS: Montelukast Sodium 10 mg Tablet PO SCH (20:31)
[2023-01-09] MEDS: Levothyroxine Sodium 100 MCG TAB PO SCH (20:31)
[2023-01-10 04:05] LABS: #Monocytes 0.7 thou/uL (0.11-0.59); #Neutrophils 17.7 thou/uL (1.40-6.50); %Basophils 0.2 % (0.0-1.0); %Eosinophils 0.1 % (0.0-10.0); %Lymphocytes 3.6 % (21.0-51.0); %Monocytes 3.8 % (0.0-10.0); %Neutrophils 90.6 % (42.0-75.0); Hematocrit 40.7 % (42.0-52.0); Hemoglobin 13.6 g/dL (14.0-18.0); Mean Corpuscular HGB CONC 33.4 g/dL (32.0-36.0); Mean Corpuscular Hemoglobin 28.6 pg (27.0-31.0); Mean Corpuscular Volume 85.7 fl (78.0-98.0); Mean Platelet Volume 10.3 fL (7.4-10.4); Platelet Count 168 10x3/uL (130-400); RBC Distribution Width 15.6 % (11.5-14.5); Red Blood Cell (RBC) Count 4.75 mill/uL (4.70-6.10); White Blood Cell (WBC) Count 19.6 10x3/uL (4.8-10.8)
[2023-01-10 04:32] LABS: Anion Gap 12 mmol/L (10-20); BUN (Urea Nitrogen) 26 mg/dL (8.4-25.7); Calc. Creatinine Clearance 74 mL/min (70-130); Calcium 8.3 mg/dL (7.8-10.44); Carbon Dioxide 27 mmol/L (23-31); Chloride 98 mmol/L (98-107); Estimated GFR 88; Glucose 124 mg/dL (83-110); Sodium 133 mmol/L (136-145)
[2023-01-10] MEDS: methylPREDNISolone Sod Succ 40 MG VIAL IVP SCH ×3 (06:16→18:08)
[2023-01-10] MEDS ORDERED: HYDROcodone/Acetaminophen 5/325 mg Tablet PO PRN (07:06)
[2023-01-10] MEDS ORDERED: HYDROcodone/Acetaminophen 7.5/325 mg Tablet PO PRN (07:07)
[2023-01-10] MEDS: FLUoxetine HCl 20 MG CAP PO SCH (09:45)
[2023-01-10] MEDS: Furosemide 40 MG/4 ML VIAL SLOW IVP SCH (09:45)
[2023-01-10] MEDS: guaiFENesin ER 600 MG TAB PO SCH ×2 (09:45→21:19)
[2023-01-10] MEDS: Ferrous Sulfate 325 MG TAB PO SCH (09:45)
[2023-01-10] MEDS: Dutasteride 0.5 MG CAP PO SCH (09:45)
[2023-01-10] MEDS: Saccharomyces boulardii 250 MG CAP PO SCH ×2 (09:46→21:19)
[2023-01-10] MEDS: ALPRAZolam 0.25 MG TAB PO PRN ×2 (09:46→21:19)
[2023-01-10] MEDS: Multivitamin W/ Minerals 1 TAB PO SCH (09:46)
[2023-01-10] MEDS: Tamsulosin HCl 0.4 MG CAP PO SCH (09:46)
[2023-01-10] MEDS: Rosuvastatin 20 MG TAB PO SCH (09:46)
[2023-01-10] MEDS: LevoFLOXacin 750 mg/D5W 750 MG in Premix 1 BAG IVPB SCH (15:45)
[2023-01-10] MEDS: Montelukast Sodium 10 mg Tablet PO SCH (21:19)
[2023-01-10] MEDS: Levothyroxine Sodium 100 MCG TAB PO SCH (21:19)
[2023-01-10] MEDS: LUNESTA 2 MG PO SCH (21:20)
[2023-01-11] MEDS: methylPREDNISolone Sod Succ 40 MG VIAL IVP SCH ×5 (01:02→23:44)
[2023-01-11] MEDS: ALPRAZolam 0.25 MG TAB PO PRN ×4 (01:24→23:30)
[2023-01-11 04:02] LABS: Hematocrit 40.1 % (42.0-52.0); Hemoglobin 13.2 g/dL (14.0-18.0); Mean Corpuscular HGB CONC 32.9 g/dL (32.0-36.0); Mean Corpuscular Hemoglobin 28.1 pg (27.0-31.0); Mean Corpuscular Volume 85.5 fl (78.0-98.0); Mean Platelet Volume 10.5 fL (7.4-10.4); Platelet Count 215 10x3/uL (130-400); RBC Distribution Width 15.8 % (11.5-14.5); Red Blood Cell (RBC) Count 4.69 mill/uL (4.70-6.10); White Blood Cell (WBC) Count 28.1 10x3/uL (4.8-10.8)
[2023-01-11 04:08] LABS: Delete Auto Diff?? YES; Manual Diff?? YES
[2023-01-11 04:44] LABS: Band 1 % (5-11); CellaVision Operator ID lab.abc; Lymphocytes 1 % (21-51); Monocytes 2 % (0-10); Neutrophil 96 % (42-75); Platelet Adequacy Comment Platelets Normal; RBC Morphology Within Normal Limits; Total Cell Count 100
[2023-01-11 06:58] LABS: BUN (Urea Nitrogen) 31 mg/dL (8.4-25.7); Calc. Creatinine Clearance 68 mL/min (70-130); Calcium 8.3 mg/dL (7.8-10.44); Carbon Dioxide 27 mmol/L (23-31); Chloride 97 mmol/L (98-107); Estimated GFR 87; Glucose 120 mg/dL (83-110); Potassium 4.1 mmol/L (3.5-5.1); Sodium 134 mmol/L (136-145)
[2023-01-11 07:03] LABS: Anion Gap 14 mmol/L (10-20)
[2023-01-11] MEDS: Ferrous Sulfate 325 MG TAB PO SCH (08:29)
[2023-01-11] MEDS: Furosemide 40 MG/4 ML VIAL SLOW IVP SCH (08:29)
[2023-01-11] MEDS: FLUoxetine HCl 20 MG CAP PO SCH (08:29)
[2023-01-11] MEDS: Dutasteride 0.5 MG CAP PO SCH (08:29)
[2023-01-11] MEDS: Multivitamin W/ Minerals 1 TAB PO SCH (08:30)
[2023-01-11] MEDS: Tamsulosin HCl 0.4 MG CAP PO SCH (08:30)
[2023-01-11] MEDS: Rosuvastatin 20 MG TAB PO SCH (08:30)
[2023-01-11] MEDS: Saccharomyces boulardii 250 MG CAP PO SCH ×2 (08:30→23:05)
[2023-01-11] MEDS: guaiFENesin ER 600 MG TAB PO SCH ×2 (08:30→23:05)
[2023-01-11] MEDS: Micafungin 100 MG in Sodium Chloride 0.9% 100 ML IVPB SCH (12:09)
[2023-01-11] MEDS: Doxycycline 100 MG in Sodium Chloride 0.9% 100 ML IVPB SCH ×2 (12:09→23:04)
[2023-01-11] MEDS: busPIRone HCl 5 MG TAB PO PRN (13:43)
[2023-01-11 19:54] VITALS: BP 114/66
[2023-01-11] MEDS: LUNESTA 2 MG PO SCH (23:04)
[2023-01-11] MEDS: Levothyroxine Sodium 100 MCG TAB PO SCH (23:05)
[2023-01-11] MEDS: Montelukast Sodium 10 mg Tablet PO SCH (23:05)
[2023-01-12 06:41] LABS: Anion Gap 13 mmol/L (10-20); BUN (Urea Nitrogen) 35 mg/dL (8.4-25.7); Calc. Creatinine Clearance 65 mL/min (70-130); Calcium 8.5 mg/dL (7.8-10.44); Carbon Dioxide 28 mmol/L (23-31); Chloride 98 mmol/L (98-107); Estimated GFR 86; Glucose 130 mg/dL (83-110); Sodium 135 mmol/L (136-145)
[2023-01-12 07:14] LABS: Hematocrit 42.2 % (42.0-52.0); Hemoglobin 13.8 g/dL (14.0-18.0); Mean Corpuscular HGB CONC 32.7 g/dL (32.0-36.0); Mean Corpuscular Hemoglobin 28.3 pg (27.0-31.0); Mean Corpuscular Volume 86.5 fl (78.0-98.0); Mean Platelet Volume 10.6 fL (7.4-10.4); Platelet Count 273 10x3/uL (130-400); RBC Distribution Width 15.6 % (11.5-14.5); Red Blood Cell (RBC) Count 4.88 mill/uL (4.70-6.10); White Blood Cell (WBC) Count 29.3 10x3/uL (4.8-10.8)
[2023-01-12] MEDS: methylPREDNISolone Sod Succ 40 MG VIAL IVP SCH ×2 (07:32→11:59)
[2023-01-12 07:45] LABS: Delete Auto Diff?? YES; Manual Diff?? YES
[2023-01-12 08:17] LABS: Band 6 % (5-11); CellaVision Operator ID LAB.GE; Lymphocytes 1 % (21-51); Monocytes 3 % (0-10); Neutrophil 89 % (42-75); Platelet Adequacy Comment Platelets Normal; Polychromasia SLIGHT = 2-3 cells HPF (0-2); Total Cell Count 101
[2023-01-12] MEDS: Doxycycline 100 MG in Sodium Chloride 0.9% 100 ML IVPB SCH (08:32)
[2023-01-12] MEDS: Micafungin 100 MG in Sodium Chloride 0.9% 100 ML IVPB SCH (08:33)
[2023-01-12] MEDS: FLUoxetine HCl 20 MG CAP PO SCH (08:33)
[2023-01-12] MEDS: guaiFENesin ER 600 MG TAB PO SCH (08:33)
[2023-01-12] MEDS: Multivitamin W/ Minerals 1 TAB PO SCH (08:33)
[2023-01-12] MEDS: Tamsulosin HCl 0.4 MG CAP PO SCH (08:33)
[2023-01-12] MEDS: Ferrous Sulfate 325 MG TAB PO SCH (08:33)
[2023-01-12] MEDS: Furosemide 40 MG/4 ML VIAL SLOW IVP SCH (08:33)
[2023-01-12] MEDS: ALPRAZolam 0.25 MG TAB PO PRN ×2 (08:33→14:00)
[2023-01-12] MEDS: Saccharomyces boulardii 250 MG CAP PO SCH (08:33)
[2023-01-12] MEDS: Rosuvastatin 20 MG TAB PO SCH (08:33)
[2023-01-12] MEDS: Dutasteride 0.5 MG CAP PO SCH (08:33)
[2023-01-12] MEDS ORDERED: Lorazepam 2 MG/ML VIAL SLOW IVP PRN (08:55)
[2023-01-12 10:26] VITALS: TEMP 97.3
== END 2023-01-12 16:10 | disposition hospice, home (50) | DRG 871 ==
LOC: ERS 10:25 → ERHOLD 15:15 → IMCU/EMU 20:33
PROVIDERS: ADMIT Internal Medicine; ATTEND Internal Medicine
PROC: 3E03329 Introduction of Other Anti-infective into Peripheral Vein, Percutaneous Approach (ICD-10-PCS; principal; 2022-12-30)
PROC: 5A0955A Assistance with Respiratory Ventilation, Greater than 96 Consecutive Hours, High Flow/Velocity Cannula (ICD-10-PCS; 2022-12-30)
DX: A41.9 Sepsis, unspecified organism (principal); Z51.5 Encounter for palliative care; Z66 Do not resuscitate; J18.9 Pneumonia, unspecified organism; J80 Acute respiratory distress syndrome; I50.30 Unspecified diastolic (congestive) heart failure; E03.9 Hypothyroidism, unspecified; I25.10 Atherosclerotic heart disease of native coronary artery without angina pectoris; Z88.0 Allergy status to penicillin; Z88.1 Allergy status to other antibiotic agents; Z79.82 Long term (current) use of aspirin; N40.0 Benign prostatic hyperplasia without lower urinary tract symptoms; E78.5 Hyperlipidemia, unspecified; M19.90 Unspecified osteoarthritis, unspecified site; G47.00 Insomnia, unspecified; F41.9 Anxiety disorder, unspecified; F32.A Depression, unspecified; Z88.2 Allergy status to sulfonamides; Z96.641 Presence of right artificial hip joint; I48.91 Unspecified atrial fibrillation; E87.6 Hypokalemia; R59.0 Localized enlarged lymph nodes; D64.9 Anemia, unspecified; Z98.890 Other specified postprocedural states; Z11.52 Encounter for screening for COVID-19; Z79.899 Other long term (current) drug therapy
CPT/HCPCS: 36415; 71045; 71275; 80048; 80053; 80076; 80202; 83605; 83690; 83735; 83880; 84145; 84484; 85025; 86140; 87040; 87081; 87633; 93005; 93306; 96365; 96367; J1100; J1650; J1940; J1956; J2060; J2248; J2920; J3370; J3370-JW; J3490; J7620; Q9967